=== PATIENT | male | born 1950 | race Caucasian/White ===

== ENCOUNTER 2024-08-29 12:27 | Emergency (ER) | payer MEDICARE, MEDICAID ==
[~2024-08-29] VITALS: Ht 170.2 cm; Wt 45.0 kg
[2024-08-29 12:28] VITALS: BP 153/81; PULSE 89; RESP 18; O2SAT 99
--- NOTE | 2024-08-29 13:59 | Physician Documentation ---
History of Present Illness ~ Chief Complaint: Mechanical Fall Stated Complaint: [facility] Time Seen by MD: 12:42 HPI Very pleasant 74-year-old, yet demented male presents to the ED for a ground level fall without injury today..Denies blood thinners, denies any loss of consciousness. Reports wanting to go home. Day of Fall: Aug 29, 2024 Review of Systems All Other Systems at this time: Reviewed and Negative ROS As stated above in the HPI, otherwise all systems are reviewed and negative. Physical Exam Vital Signs: Temperature: 97.9, Source: Temporal, Heart Rate: 89, Respiratory Rate: 18, BP: 153/81, Pulse Oximetry: 99, Weight: 45.000 Oxygen Flow Rate: 0 Physical Exam General: Alert, no apparent distress. Respiratory: Lungs clear, no respiratory distress. Cardiovascular: Regular rate and rhythm, no murmurs. Neurologic: Oriented x4. Psychiatric: Normal mood and affect. Skin: Normal color, warm and dry. No edema, no ecchymosis. Progress Results/Orders Results/Orders Completed Orders - CHAPO ELENA NP Urinalysis, Cult If Indicated (08/29/24 14:00) Cbc/Diff (08/29/24 14:00) BMP (08/29/24 14:00) Vital Signs 08/29/24 08/29/24 12:28 16:01 Temp 97.9 97.9 Pulse 89 Resp 18 B/P (MAP) 153/81 Pulse Ox 99 O2 Flow Rate 0 Laboratory Tests Test 08/29/24 14:26 08/29/24 15:24 White Blood Count 14.3 H Red Blood Count 4.96 Hemoglobin 15.0 Hematocrit 44.9 Mean Corpuscular Volume 90.5 Mean Corpuscular Hemoglobin 30.2 Mean Corpuscular Hemoglobin Concent 33.3 Red Cell Distribution Width 14.2 Platelet Count 305 Mean Platelet Volume 7.0 L Neutrophils (%) (Auto) 83.0 H Lymphocytes (%) (Auto) 10.7 L Monocytes (%) (Auto) 5.7 Eosinophils (%) (Auto) 0.2 Basophils (%) (Auto) 0.4 Neutrophils # (Auto) 11.8 H Lymphocytes # (Auto) 1.5 Monocytes # (Auto) 0.8 Eosinophils # (Auto) 0.0 Basophils # (Auto) 0.1 CBC Comment Sodium Level 143 Potassium Level 3.9 Chloride Level 104 Carbon Dioxide Level 29.5 Anion Gap 10 Blood Urea Nitrogen 14 Creatinine 0.97 Estimated GFR/1.73 m2 76 BUN/Creatinine Ratio 14.4 Glucose Level 121 H Calcium Level 9.4 Albumin 3.9 Chemistry Comments Urine Specimen Description Cln catch midstream Urine Color Yellow Urine Clarity Clear Urine pH 6.0 Urine Specific [place] 1.025 Urine Protein Negative Urine Glucose (UA) Negative Urine Ketones Trace H Urine Occult Blood Negative Urine Nitrite Negative Urine Bilirubin Negative Urine Urobilinogen 1.0 Urine Leukocyte Esterase Negative Urine Culture Indicated Not ind Volume Urine Centrifuged 10 ml Urine Comment Medical Decision Making Differential Dx:Considerations: Include: Closed head injury, Cardiac injury, Fracture(s), Intraabdominal injury, Pneumothorax, Cerebral contusion, Pulmonary contusion, Spine injury, Tracheal injury, Urological injury, Vascular injury, Abrasion(s), Contusion(s), Foreign body(s), Hematoma(s), Laceration(s), Encephalopathy, Other Departure Disposition: 01 HOME / SELF CARE / HOMELESS Impression: Primary Impression: Fall Discharge Instructions: Fall Prevention in the Home, Adult, [id number] Referrals: NO PRIMARY CARE PROVIDER (PCP) Education Educated: Patient Educated regarding: diagnosis Signature Scribe Signature: f Attestation: Scribed for Chapo Elena Senior It Specialist by Chapo Ortega NP . 08/29/24 18:31 CHAPO ELENA NP Aug 29, 2024 13:59
[2024-08-29 14:42] LABS: MEAN PLATELET VOLUME 7.0 FL (7.4-10.4); RED CELL DISTRIBUTION WIDTH 14.2 % (11.5-14.5)
[2024-08-29 14:53] LABS: CREATININE 0.97 MG/DL (0.60-1.10); TOTAL CARBON DIOXIDE 29.5 MMOL/L (24-32); eCRCL 44 ML/MIN; eGFR 76 ML/MIN
[2024-08-29 15:28] LABS: LEUKOCYTE ESTERASE ,URINE NEGATIVE (Neg); NITRITES, URINE NEGATIVE (Neg); OCCULT BLOOD,URINE NEGATIVE (Neg)
[2024-08-29 15:45] LABS: UA COLLECTION TYPE CLN CATCH MIDSTREAM
[2024-08-29 16:01] VITALS: TEMP 97.9
== END 2024-08-29 16:14 | disposition home or self-care (01) ==
LOC: ER 12:27
DX: Z00.00 Encounter for general adult medical examination without abnormal findings (principal); W18.30XA Fall on same level, unspecified, initial encounter; Y93.89 Activity, other specified; Y92.89 Other specified places as the place of occurrence of the external cause; Y99.8 Other external cause status
CPT/HCPCS: 36415; 80048; 81003; 85025; 99283